=== PATIENT | female | born 1995 | race Caucasian/White ===

== ENCOUNTER 2021-10-16 15:22 | Emergency (ER) | payer OTHER, MEDICAID ==
[~2021-10-16] VITALS: Ht 167.6 cm; Wt 91.7 kg
[~2021-10-16 15:22] MED LIST: NO HOME MEDS; PROC5TAB56 PO
[2021-10-16 17:34] VITALS: BP 94/78
[2021-10-16] MEDS ORDERED: ondansetron/PF 4mg/2ml inj IV ONE (18:30)
[2021-10-16] MEDS ORDERED: normal saline 1000ml 1,000 ML IV ONE (18:30)
[2021-10-16 19:21] LABS: URINE HCG NEGATIVE (NEG)
[2021-10-16] MEDS ORDERED: ONDA4TAB12 PO (20:19)
== END 2021-10-17 00:35 | disposition home or self-care (01) ==
LOC: ER 15:23
DX: B34.9 Viral infection, unspecified (principal); Z20.822 Contact with and (suspected) exposure to COVID-19; K52.9 Noninfective gastroenteritis and colitis, unspecified; R11.2 Nausea with vomiting, unspecified; F41.9 Anxiety disorder, unspecified; F32.A Depression, unspecified; Z79.899 Other long term (current) drug therapy
CPT/HCPCS: 81025; 87502; 87503; 87635; 96361; 96374; 99284; C9803; J2405; J7030

== ENCOUNTER 2024-01-17 08:17 | Outpatient (CLI) | payer BC ==
[~2024-01-17 08:17] MED LIST changes: +ONDA-243 PO
[2024-01-17 09:38] LABS: BASOPHILS % (AUTO) 0.4 % (0-1); EOSINOPHILS # (AUTO) 0.1 X10'3 (0-0.9); EOSINOPHILS % (AUTO) 2.1 % (0-6); HEMATOCRIT 44.6 % (35.0-45.0); HEMOGLOBIN 14.9 g/dl (12.0-16.0); LYMPHOCYTES # (AUTO) 1.8 X10'3 (1.1-4.8); LYMPHOCYTES % (AUTO) 24.8 % (21-51); MEAN CORPUSCULAR HEMOGLOBIN 30.3 PG (27.0-31.0); MEAN CORPUSCULAR HGB CONC 33.4 g/dL (33.0-36.5); MEAN CORPUSCULAR VOLUME 90.5 FL (78-98); MEAN PLATELET VOLUME 9.2 FL (7.4-10.4); MONOCYTES # (AUTO) 0.5 X10'3 (0-0.9); MONOCYTES % (AUTO) 7.6 % (2-12); NEUTROPHILS # (AUTO) 4.6 X10'3 (1.8-7.7); NEUTROPHILS % (AUTO) 65.1 % (42-75); PLATELET COUNT 287 X10'3 (140-440); RED BLOOD COUNT 4.93 X10'6 (4.20-5.60); RED CELL DISTRIBUTION WIDTH 13.1 % (11.5-14.5); WHITE BLOOD COUNT 7.1 X10'3 (4.5-11.0)
[2024-01-17 09:54] LABS: ALANINE AMINOTRANSFERASE 31 U/L (12-78); ALBUMIN 3.4 G/DL (3.4-5.0); ALBUMIN/GLOBULIN RATIO 0.9 (1.1-1.5); ALKALINE PHOSPHATASE 69 IU/L (46-116); ANION GAP 10 (8-16); ASPARTATE AMINO TRANSFERASE 23 U/L (10-37); BILIRUBIN,TOTAL 0.8 MG/DL (0.1-1.0); BLOOD UREA NITROGEN 11 MG/DL (7-18); BUN/CREATININE RATIO 14.7 (10.0-20.0); CALCIUM 8.5 MG/DL (8.5-10.1); CHLORIDE 106 MMOL/L (99-107); CHOLESTEROL 207 MG/DL (0-200); CREATININE 0.75 MG/DL (0.40-0.90); GLUCOSE 93 MG/DL (70-104); HDL CHOLESTEROL 41 MG/DL (35-60); LDL CHOLESTEROL 121 MG/DL (50-100); POTASSIUM 4.1 MMOL/L (3.5-5.1); SODIUM 137 MMOL/L (135-145); THYROID STIMULATING HORMONE 1.06 ulU/ml (0.34-4.50); TOTAL CARBON DIOXIDE 21.3 MMOL/L (24-32); TOTAL PROTEIN 7.1 G/DL (6.4-8.2); TRIGLYCERIDES 199 MG/DL (20-135); eGFR > 90 ML/MIN
[2024-01-19 06:58] LABS: MUMPS ANTIBODIES, IGG 79.4 AU/mL (Immune >10.9); RUBELLA ANTIBODIES, IGG 2.22 index (Immune >0.99)
== END 2024-01-17 23:59 | disposition home or self-care (01) ==
LOC: LAB 08:17
PROVIDERS: ATTEND Nurse Practitioner
DX: F41.9 Anxiety disorder, unspecified (principal); F32.A Depression, unspecified; E66.8 Other obesity; E56.9 Vitamin deficiency, unspecified; R53.83 Other fatigue; R76.0 Raised antibody titer
CPT/HCPCS: 36415; 80053; 80061; 82306; 83036; 84443; 85025; 86735; 86762; 86765

== ENCOUNTER 2024-05-06 08:16 | Emergency (ER) | payer BC ==
[~2024-05-06] VITALS: Ht 167.6 cm; Wt 102.8 kg
[2024-05-06 08:20] VITALS: BP 146/84; PULSE 95; RESP 18; TEMP 98.1; O2SAT 97
== END 2024-05-06 10:39 | disposition left against medical advice (07) ==
LOC: ER 08:17
DX: H92.01 Otalgia, right ear (principal); Z53.21 Procedure and treatment not carried out due to patient leaving prior to being seen by health care provider

== ENCOUNTER 2024-07-01 11:00 | Emergency (ER) | payer BC, OTHER ==
[~2024-07-01] VITALS: Ht 167.6 cm; Wt 103.8 kg
[2024-07-01 12:54] VITALS: BP 134/80; PULSE 78; RESP 16; TEMP 98; O2SAT 97
== END 2024-07-01 12:54 | disposition home or self-care (01) ==
LOC: ER 11:00
DX: S93.491A Sprain of other ligament of right ankle, initial encounter (principal); F41.9 Anxiety disorder, unspecified; F32.A Depression, unspecified; Z79.899 Other long term (current) drug therapy; X58.XXXA Exposure to other specified factors, initial encounter; Y93.89 Activity, other specified; Y92.89 Other specified places as the place of occurrence of the external cause; Y99.8 Other external cause status
CPT/HCPCS: 73610; 99283; L4360